=== PATIENT | female | born 1995 | race Hispanic/Latino ===

== ENCOUNTER 2021-08-26 09:58 | Emergency (ER) | payer SELFPAY ==
[2021-08-26 11:00] LABS: Bilirubin Negative (Negative); Blood, Urine Large (Negative); Clarity Clear (Clear); Glucose, Urine (Dipstick) Negative (Negative); Ketone, Urine Negative (Negative); Leukocyte Large (Negative); Nitrite Negative (Negative); Protein, Urine (Dipstick) > or equal to 300 mg/dL (Neg-Trace); Specific Gravity, Urine 1.025 (1.005-1.030)
[2021-08-26 11:05] LABS: Bacteria/HPF Rare-Few HPF (None Seen); Squamous Epithelial 0-3 HPF (0-3)
[2021-08-26 11:22] LABS: Pregnancy Test - Urine (BHCG) Negative (Negative)
[2021-08-26 11:23] LABS: Pregu Control Background? CLEAR/WHITE (CLR/WHITE); Pregu Control Bar Appear? YES (CONTROL BAR); Specific Gravity 1.025 (1.002-1.036)
== END 2021-08-26 11:30 | disposition home or self-care (01) ==
LOC: NAV ERS 09:58
DX: N30.00 Acute cystitis without hematuria (principal)
CPT/HCPCS: 81003; 81015; 81025; 87077; 87086; 87186; 99283

== ENCOUNTER 2023-05-04 18:13 | Emergency (ER) | payer SELFPAY ==
[2023-05-04] MEDS ORDERED: Penicillin V Potassium 250 MG TAB ONE (18:30)
[2023-05-04] MEDS ORDERED: Ibuprofen 800 MG TAB ONE (18:30)
== END 2023-05-04 18:41 | disposition home or self-care (01) ==
LOC: NAV ERS 18:13
DX: J02.0 Streptococcal pharyngitis (principal)
CPT/HCPCS: 99282